=== PATIENT | male | born 1995 | race Caucasian/White ===

== ENCOUNTER 2017-12-10 19:55 | Emergency (ER) | payer BC ==
[2017-12-10] MEDS ORDERED: Acetaminophen 325 MG Tab PO ONE (20:48)
--- NOTE | 2017-12-10 22:50 | EDM.PDOC ---
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 [No Known Home Meds] 12/10/17 [History] Past Medical History - Past Health History Medical/Surgical History: Denies Medical/Surgical History Social & Family History - Tobacco Use Smoking Status *Q: Never Smoker - Caffeine Use Caffeine Use: Reports: Coffee, Energy Drinks, Tea - Recreational Drug Use Recreational Drug Use: No ED ROS ENT - Review of Systems Review Of Systems: See Below ED EXAM, ENT - Physical Exam Exam: See Below Course - Vital Signs Last Recorded V/S: Last Vital Signs Temp 37.7 C 12/10/17 20:53 Pulse 98 12/10/17 20:04 Resp 20 12/10/17 20:04 BP 123/70 12/10/17 20:04 Pulse Ox 97 12/10/17 20:04 - Orders/Labs/Meds Orders: Active Orders 24 hr Category Date Time Status CXR [Chest 2V] [CR] Stat Exams 12/10/17 21:30 Taken CULTURE STREP A CONFIRMATION [RM] Stat Lab 12/10/17 20:45 Results STREP SCRN A RAPID W CULT CONF [RM] Stat Lab 12/10/17 20:45 Results Labs: Laboratory Tests 12/10/17 12/10/17 Range/Units 21:50 21:50 WBC 9.39 H (4.23-9.07) K/mm3 RBC 5.10 (4.63-6.08) M/mm3 Hgb 15.3 (13.7-17.5) gm/L Hct 44.4 (40.1-51.0) % MCV 87.1 (79.0-92.2) fl MCH 30.0 (25.7-32.2) pg MCHC 34.5 (32.2-35.5) g/dl RDW Std Deviation 43.1 (35.1-43.9) fL Plt Count 196 (163-337) K/mm3 MPV 10.0 (9.4-12.3) fl Neut % (Auto) 80.9 H (34.0-67.9) % Lymph % (Auto) 8.9 L (21.8-53.1) % Dundy % (Auto) 9.7 (5.3-12.2) % Eos % (Auto) 0.4 L (0.8-7.0) Baso % (Auto) 0.0 L (0.1-1.2) % Neut # (Auto) 7.59 H (1.78-5.38) K/mm3 Lymph # (Auto) 0.84 L (1.32-3.57) K/mm3 Dundy # (Auto) 0.91 H (0.30-0.82) K/mm3 Eos # (Auto) 0.04 (0.04-0.54) K/mm3 Baso # (Auto) 0.00 L (0.01-0.08) K/mm3 Manual Slide Review Normal smear Monoscreen Negative (NEGATIVE) Meds: Medications Discontinued Medications Generic Name Dose Route Start Last Admin Trade Name Freq PRN Reason Stop Dose Admin Acetaminophen 975 mg 12/10/17 20:48 12/10/17 20:53 Tylenol PO 12/10/17 20:49 975 mg NOW ONE Administration Departure - Departure Time of Disposition: 22:46 Disposition: Home, Self-Care 01 Clinical Impression: Viral pharyngitis - Discharge Information *PRESCRIPTION DRUG MONITORING PROGRAM REVIEWED*: No *COPY OF PRESCRIPTION DRUG MONITORING REPORT IN PATIENT OLIVER: No Referrals: PCP,None [Primary Care Provider] - Additional Instructions: Continue tylenol or ibuprofen, as needed for fever greater than 102. Return to clinic if symptoms worsen. - My Orders Last 24 Hours: My Active Orders 12/10/17 20:45 CULTURE STREP A CONFIRMATION [RM] Stat STREP SCRN A RAPID W CULT CONF [RM] Stat 12/10/17 21:30 CXR [Chest 2V] [CR] Stat - Assessment/Plan Last 24 Hours: My Active Orders 12/10/17 20:45 CULTURE STREP A CONFIRMATION [RM] Stat STREP SCRN A RAPID W CULT CONF [RM] Stat 12/10/17 21:30 CXR [Chest 2V] [CR] Stat
--- NOTE | 2017-12-11 05:36 | ER ---
REASON FOR EMERGENCY ROOM VISIT: Fever, myalgias, and sore throat. HISTORY OF PRESENT ILLNESS: This 22-year-old man was in his normal usual state of good health until this afternoon when he felt somewhat tired and took a nap for about 4 hours. His significant other noticed that he felt warm and took his temperature a number of times. He had a high temperature of 104.8. He has not had any chills, but he has developed a lot of myalgias and bone and muscle aches as well as a headache and a sore throat in this period of time. He has not had a cough. He has not had any GI symptoms nor has he had any rashes. He has not done any traveling lately. He denies any exposure to tick bites, and he has had no other symptoms. PAST MEDICAL HISTORY: Unremarkable. No prior hospitalizations. CURRENT MEDICATIONS: None. ALLERGIES: None. REVIEW OF SYSTEMS: Pertinent positives and negatives as listed in the HPI. PHYSICAL EXAMINATION: GENERAL: He is alert, awake, and in no acute distress. VITAL SIGNS: His temperature is 37.2, heart rate is 98, blood pressure 122/70, respiratory rate 20, O2 saturation is 97% on room air. HEENT: Head is normocephalic. TMs are normal. Oropharynx, there is mild erythema, but no exudates. NECK: Supple. No sign of meningeal irritation. There is some mild adenopathy possibly in the right side. It seems to be slightly tender. CHEST: Clear to auscultation with good air exchange. No wheezes, rhonchi, or rales. CARDIAC: Regular rate without murmur. ABDOMEN: Soft, nondistended, nontender. No rebound or guarding. No percussion tenderness. EXTREMITIES: Normal pulses. No edema. No deformities. SKIN: No rashes. LABORATORY DATA: A strep screen was negative. The patient was informed that occasionally a negative strep screen is converted to a positive strep culture and therefore, it would be a good idea to call in and check on that tomorrow, in case just to be sure that this does not fall through the cracks. His CBC shows a very borderline leukocytosis and a monospot was negative. I did go ahead and did a chest x-ray and that shows no acute disease. IMPRESSION: Pharyngitis, most likely viral. PLAN: I discussed supportive measures with the patient and his significant other. They understand and agree. Certainly, if he should worsen, he should be reevaluated. Again, it would be a good idea to follow up on his strep culture tomorrow. Clinically that was what I suspected the most. He understands and agrees. All questions were answered. ZAN /[id number]
--- NOTE | 2017-12-11 08:37 | CR ---
Chest: Two views of the chest were obtained. Comparison: No prior chest x-ray. Heart size and mediastinum are normal. Lungs are clear. Bony structures are unremarkable. Impression: 1. Nothing acute is seen on two-view chest x-ray. Diagnostic code #1
== END 2017-12-10 22:54 | disposition home or self-care (01) ==
LOC: JD.ED 19:55
DX: J02.9 Acute pharyngitis, unspecified (principal)
CPT/HCPCS: 36415; 71046; 85025; 86308; 87081; 87430; 99284; A9270; 99282

== ENCOUNTER 2024-08-31 14:33 | Emergency (ER) | payer BC, OTHER ==
[2024-08-31] MEDS: Ondansetron 4 MG/2 ML SDV IVPUSH ONE ×2 (15:11→15:51)
[2024-08-31] MEDS: Propofol 200 MG/20 ML SDV IVPUSH ONE (15:30)
[2024-08-31] MEDS: Acetaminophen/oxyCODONE 325-5 MG Tab PO ONE (15:51)
== END 2024-08-31 16:39 | disposition home or self-care (01) ==
LOC: JD.ED 14:33
DX: S93.04XA Dislocation of right ankle joint, initial encounter (principal); S82.51XA Displaced fracture of medial malleolus of right tibia, initial encounter for closed fracture; Z79.899 Other long term (current) drug therapy; X50.1XXA Overexertion from prolonged static or awkward postures, initial encounter; Y93.53 Activity, golf
CPT/HCPCS: 27840; 73600; 73610; 96374; 96376; 99283; A9270; J2405; J2704; 29515; 99151; 99284